=== PATIENT | male | born 1935 | race Caucasian/White ===

== ENCOUNTER 2017-07-29 23:28 | Inpatient (IN) | payer MEDICARE ==
[~2017-07-29] VITALS: Ht 177.8 cm; Wt 94.1 kg
[~2017-07-29 23:28] MED LIST: ASPI-555 PO; CARV6.25 PO; CHOL100018 PO; CLOP75TA32 PO; FLUT1AER IH; FURO40TA5 PO; GABA-529 PO; IPRA3AMP24 IH; OLME40TA8 PO; SIMV80TA7 PO
[2017-07-29 23:47] LABS: BASOPHILS % (AUTO) 1.7 % (0.0-5.0); EOSINOPHILS % (AUTO) 3.9 % (0.0-8.0); HEMATOCRIT 27.5 % (42-54); LYMPHOCYTES % (AUTO) 16.9 % (21.0-51.0); MEAN CORPUSCULAR HEMOGLOBIN 27.3 pg (27.0-33.0); MEAN CORPUSCULAR HGB CONC 31.8 g/dL (32.0-36.0); MEAN CORPUSCULAR VOLUME 85.7 fL (79-99); MONOCYTES % (AUTO) 6.6 % (3.0-13.0); NEUTROPHILS % (AUTO) 70.9 % (40.0-77.0); PLATELET COUNT (AUTO) 305 K/uL (130-400); RED BLOOD CELL COUNT(AUTO) 3.21 MIL/uL (4.50-6.20); WHITE BLOOD COUNT (AUTO) 10.2 K/uL (4.8-10.8)
[2017-07-30 00:02] LABS: CREATININE 1.7 mg/dL (0.5-1.5); POTASSIUM 4.3 mmol/L (3.5-5.1)
[2017-07-30 00:04] LABS: INR 0.88 (0.85-1.15); PARTIAL THROMBOPLASTIN TIME 22.4 SEC (26.3-35.5); PROTHROMBIN TIME 9.3 SEC (9.6-11.6)
[2017-07-30 00:05] LABS: ALBUMIN 3.1 g/dL (3.5-5.0); BILIRUBIN,TOTAL 0.1 mg/dL (0.2-1.0); TOTAL PROTEIN, SERUM 6.9 g/dL (6.0-8.3)
[2017-07-30] MEDS ORDERED: GLUCAGON 1MG KIT 1 MG ML IM PRN (05:45)
[2017-07-30] MEDS ORDERED: LACTULOSE 20 GM/30 ML UDCUP PO PRN (05:45)
[2017-07-30] MEDS ORDERED: POTASSIUM CHLORIDE 10% ELIXIR 20 MEQ/15 ML UDCUP PO PRN (05:45)
[2017-07-30] MEDS ORDERED: ACETAMINOPHEN 325 MG TAB PO PRN ×2 (05:45)
[2017-07-30] MEDS ORDERED: POTASSIUM CHLORIDE 20 MEQ ERTAB PO PRN (05:45)
[2017-07-30] MEDS ORDERED: DEXTROSE 50%-WATER 50 ML DISP.SYRIN IV PRN (05:45)
[2017-07-30] MEDS ORDERED: LIDOCAINE HCL-MPF 1% 2ML VIAL IJ PRN (05:45)
[2017-07-30] MEDS ORDERED: CLONIDINE HCL 0.1 MG TABLET PO PRN (05:45)
[2017-07-30] MEDS ORDERED: SODIUM CHLORIDE 0.9% 1000ML 1,000 ML IV SCH (05:45)
[2017-07-30] MEDS ORDERED: POTASSIUM CHLORIDE 20MEQ/100ML 100 ML IV PRN (05:45)
[2017-07-30] MEDS ORDERED: IPRATROPIUM/ALBUTEROL SULFATE 3 ML SOLUTION IH PRN (05:45)
[2017-07-30] MEDS: INSULIN R PO SS1 SQ SCH ×4 (07:30→21:00)
[2017-07-30] MEDS: FAMOTIDINE 20MG TAB 20 MG TAB PO SCH (09:00)
[2017-07-30] MEDS ORDERED: FAMOTIDINE/PF 20 MG/2 ML VIAL IV ONE (09:34)
[2017-07-30 10:01] LABS: BASOPHILS % (AUTO) 0.2 % (0.0-5.0); HEMATOCRIT 22.6 % (42-54); LYMPHOCYTES % (AUTO) 9.8 % (21.0-51.0); MEAN CORPUSCULAR HEMOGLOBIN 28.4 pg (27.0-33.0); MEAN CORPUSCULAR HGB CONC 33.2 g/dL (32.0-36.0); MEAN CORPUSCULAR VOLUME 85.8 fL (79-99); MONOCYTES % (AUTO) 6.6 % (3.0-13.0); NEUTROPHILS % (AUTO) 81.4 % (40.0-77.0); PLATELET COUNT (AUTO) 237 K/uL (130-400); RED BLOOD CELL COUNT(AUTO) 2.63 MIL/uL (4.50-6.20); RED CELL DISTRIBUTION WIDTH 21.5 % (11.0-15.5); WHITE BLOOD COUNT (AUTO) 7.1 K/uL (4.8-10.8)
[2017-07-30 10:05] LABS: CREATININE 1.4 mg/dL (0.5-1.5); POTASSIUM 4.2 mmol/L (3.5-5.1)
[2017-07-30] MEDS: BENZONATATE 100 MG CAPSULE PO SCH ×2 (12:45→20:55)
[2017-07-30] MEDS ORDERED: DOXYCYCLINE 100MG+NS 250ML 250 ML IV SCH ×2 (12:45→17:30)
[2017-07-30 14:45] VITALS: BP 153/99
[2017-07-30] MEDS: METHYLPREDNISOLONE SOD SUCC 40MG/ML 1ML IVP SCH ×2 (16:59→20:54)
[2017-07-30] MEDS: IPRATROPIUM/ALBUTEROL SULFATE 3 ML SOLUTION IH SCH ×2 (18:54→23:22)
[2017-07-30 19:12] VITALS: BP 146/84
[2017-07-30] MEDS ORDERED: FURO20TA4 PO (20:20)
[2017-07-30] MEDS ORDERED: OLME20TA22 PO (20:20)
[2017-07-30] MEDS ORDERED: OMEP40CA37 PO (20:20)
[2017-07-30] MEDS ORDERED: CLOP75TA14 PO (20:20)
[2017-07-30] MEDS ORDERED: UMEC62.5 IH (20:20)
[2017-07-30] MEDS ORDERED: FERR-82 PO (20:20)
[2017-07-30] MEDS ORDERED: ASPI-555 PO (20:20)
[2017-07-30] MEDS: ZOSYN 3.375GM+NS 50ML 50 ML IV SCH (20:55)
[2017-07-30] MEDS: ATORVASTATIN CALCIUM 40 MG TABLET PO SCH (20:55)
[2017-07-30] MEDS: LOSARTAN 100 MG TABLET PO SCH (20:56)
[2017-07-30] MEDS: CARVEDILOL 6.25 MG TABLET PO SCH (20:57)
[2017-07-30] MEDS: GABAPENTIN 100 MG CAPSULE PO SCH (20:57)
[2017-07-30] MEDS: BUDESONIDE 0.5 MG/2 ML INH IH SCH (21:24)
[2017-07-30 23:16] VITALS: BP 121/65
[2017-07-31] VITALS (14 sets, daily range): BP systolic 130–163; BP diastolic 68–116
[2017-07-31] MEDS: METHYLPREDNISOLONE SOD SUCC 40MG/ML 1ML IVP SCH ×3 (04:51→22:38)
[2017-07-31] MEDS: BENZONATATE 100 MG CAPSULE PO SCH ×3 (04:51→22:52)
[2017-07-31] MEDS: INSULIN R PO SS1 SQ SCH ×4 (05:47→21:00)
[2017-07-31] MEDS: IPRATROPIUM/ALBUTEROL SULFATE 3 ML SOLUTION IH SCH ×3 (05:56→18:39)
[2017-07-31] MEDS: VITAMIN D3 1000 UNIT PO SCH (09:00)
[2017-07-31] MEDS: ZOSYN 3.375GM+NS 50ML 50 ML IV SCH ×2 (09:00→11:56)
[2017-07-31] MEDS: FAMOTIDINE 20MG TAB 20 MG TAB PO SCH (09:32)
[2017-07-31] MEDS: CARVEDILOL 6.25 MG TABLET PO SCH ×2 (09:33→22:53)
[2017-07-31] MEDS: FUROSEMIDE 40 MG TABLET PO SCH (09:33)
[2017-07-31] MEDS: DOXYCYCLINE 100MG+NS 250ML 250 ML IV SCH ×2 (09:33→22:38)
[2017-07-31] MEDS: BUDESONIDE 0.5 MG/2 ML INH IH SCH ×2 (11:02→19:03)
[2017-07-31] MEDS ORDERED: PROPOFOL 10 MG/ML 20ML VIAL IV ONE (13:10)
[2017-07-31] MEDS ORDERED: EPHEDRINE SULFATE 50 MG/ML AMPULE ONE (13:11)
[2017-07-31] MEDS ORDERED: EPINEPHRINE 1 MG/ML AMPULE ONE (13:31)
[2017-07-31 19:17] LABS: APPEARANCE BODY FLUID TURBID (CLEAR); SPECIMENTYPE,BODY FLUID LAVAGE
[2017-07-31 19:18] LABS: BODY FLUID RBC 105950 /cu. mm.; BODY FLUID WBC 304 /cu. mm.; COLOR,BODY FLUID RED (LT YELLOW); TOTAL VOLUME,BODY FLUID 22 mL
[2017-07-31 20:31] LABS: BF LYMPHOCYTE 23 %; BF MONOCYTE 1 %
[2017-07-31] MEDS: LOSARTAN 100 MG TABLET PO SCH (22:53)
[2017-07-31] MEDS: ATORVASTATIN CALCIUM 40 MG TABLET PO SCH (22:53)
[2017-07-31] MEDS: GABAPENTIN 100 MG CAPSULE PO SCH (22:54)
[2017-08-01] VITALS (7 sets, daily range): BP systolic 92–152; BP diastolic 37–91
[2017-08-01] MEDS: IPRATROPIUM/ALBUTEROL SULFATE 3 ML SOLUTION IH SCH ×5 (00:06→23:49)
[2017-08-01] MEDS ORDERED: SODIUM CHLORIDE 0.9% 250 ML IV ONE (01:37)
[2017-08-01] MEDS: ZOSYN 3.375GM+NS 50ML 50 ML IV SCH ×4 (01:50→23:02)
[2017-08-01 04:08] LABS: HEMATOCRIT 24.2 % (42-54); MEAN CORPUSCULAR HEMOGLOBIN 28.4 pg (27.0-33.0); MEAN CORPUSCULAR HGB CONC 33.2 g/dL (32.0-36.0); MEAN CORPUSCULAR VOLUME 85.5 fL (79-99); PLATELET COUNT (AUTO) 273 K/uL (130-400); RED BLOOD CELL COUNT(AUTO) 2.83 MIL/uL (4.50-6.20); RED CELL DISTRIBUTION WIDTH 22.1 % (11.0-15.5); WHITE BLOOD COUNT (AUTO) 9.5 K/uL (4.8-10.8)
[2017-08-01 04:10] LABS: CREATININE 1.7 mg/dL (0.5-1.5)
[2017-08-01] MEDS: METHYLPREDNISOLONE SOD SUCC 40MG/ML 1ML IVP SCH (05:09)
[2017-08-01] MEDS: BENZONATATE 100 MG CAPSULE PO SCH ×3 (05:09→20:28)
[2017-08-01] MEDS: INSULIN R PO SS1 SQ SCH ×4 (06:14→20:36)
[2017-08-01] MEDS: BUDESONIDE 0.5 MG/2 ML INH IH SCH ×2 (06:16→18:30)
[2017-08-01] MEDS: VITAMIN D3 1000 UNIT PO SCH (08:34)
[2017-08-01] MEDS: FERROUS SULFATE 325 MG TABLET.DR PO SCH (08:57)
[2017-08-01] MEDS: LOSARTAN 100 MG TABLET PO SCH (08:57)
[2017-08-01] MEDS: FAMOTIDINE 20MG TAB 20 MG TAB PO SCH (08:57)
[2017-08-01] MEDS: DOXYCYCLINE 100MG+NS 250ML 250 ML IV SCH ×2 (08:57→20:23)
[2017-08-01] MEDS: FUROSEMIDE 40 MG TABLET PO SCH (08:58)
[2017-08-01] MEDS: CARVEDILOL 6.25 MG TABLET PO SCH ×2 (08:58→20:28)
[2017-08-01 09:50] LABS: % IRON SATURATION 4.9 % (30-44)
[2017-08-01] MEDS ORDERED: GADOBENATE DIMEGLUMINE 10 ML IV ONE (10:40)
[2017-08-01] MEDS: GABAPENTIN 100 MG CAPSULE PO SCH (20:27)
[2017-08-01] MEDS: ATORVASTATIN CALCIUM 40 MG TABLET PO SCH (20:28)
[2017-08-02 03:50] VITALS: BP 112/53
[2017-08-02] MEDS: BENZONATATE 100 MG CAPSULE PO SCH ×3 (05:21→20:34)
[2017-08-02] MEDS: IPRATROPIUM/ALBUTEROL SULFATE 3 ML SOLUTION IH SCH ×4 (06:15→23:01)
[2017-08-02] MEDS: INSULIN R PO SS1 SQ SCH ×4 (06:16→20:33)
[2017-08-02] MEDS: BUDESONIDE 0.5 MG/2 ML INH IH SCH ×2 (06:25→17:59)
[2017-08-02 07:35] VITALS: BP 120/55
[2017-08-02] MEDS: VITAMIN D3 1000 UNIT PO SCH (09:00)
[2017-08-02] MEDS: LOSARTAN 100 MG TABLET PO SCH (09:45)
[2017-08-02] MEDS: FUROSEMIDE 40 MG TABLET PO SCH (09:45)
[2017-08-02] MEDS: FERROUS SULFATE 325 MG TABLET.DR PO SCH (09:45)
[2017-08-02] MEDS: FAMOTIDINE 20MG TAB 20 MG TAB PO SCH (09:46)
[2017-08-02] MEDS: CARVEDILOL 6.25 MG TABLET PO SCH ×2 (09:46→20:34)
[2017-08-02] MEDS: ZOSYN 3.375GM+NS 50ML 50 ML IV SCH ×2 (09:46→20:35)
[2017-08-02] MEDS: DOXYCYCLINE 100MG+NS 250ML 250 ML IV SCH ×2 (09:46→20:35)
[2017-08-02] MEDS: PREDNISONE 20 MG TABLET PO SCH (09:46)
[2017-08-02 11:20] VITALS: BP 131/74
[2017-08-02 16:15] VITALS: BP 102/57
[2017-08-02 19:52] VITALS: BP 128/63
[2017-08-02] MEDS: GABAPENTIN 100 MG CAPSULE PO SCH (20:35)
[2017-08-02] MEDS: ATORVASTATIN CALCIUM 40 MG TABLET PO SCH (20:35)
[2017-08-02 23:43] VITALS: BP 113/56
[2017-08-03 03:57] LABS: HEMATOCRIT 25.6 % (42-54); MEAN CORPUSCULAR HEMOGLOBIN 28.1 pg (27.0-33.0); NUCLEATED RED BLOOD CELLS 0.1 % (0.0-0.19); PLATELET COUNT (AUTO) 278 K/uL (130-400); RED BLOOD CELL COUNT(AUTO) 3.01 MIL/uL (4.50-6.20); RED CELL DISTRIBUTION WIDTH 22.1 % (11.0-15.5); WHITE BLOOD COUNT (AUTO) 10.3 K/uL (4.8-10.8)
[2017-08-03 03:59] VITALS: BP 143/95
[2017-08-03 03:59] LABS: CREATININE 1.6 mg/dL (0.5-1.5); POTASSIUM 4.4 mmol/L (3.5-5.1)
[2017-08-03] MEDS: INSULIN R PO SS1 SQ SCH ×4 (05:32→20:33)
[2017-08-03] MEDS: BENZONATATE 100 MG CAPSULE PO SCH ×3 (05:35→20:34)
[2017-08-03] MEDS: IPRATROPIUM/ALBUTEROL SULFATE 3 ML SOLUTION IH SCH ×4 (06:29→23:32)
[2017-08-03] MEDS: BUDESONIDE 0.5 MG/2 ML INH IH SCH ×2 (06:41→18:31)
[2017-08-03 07:45] VITALS: BP 125/65
[2017-08-03] MEDS: VITAMIN D3 1000 UNIT PO SCH (09:00)
[2017-08-03] MEDS: PREDNISONE 20 MG TABLET PO SCH (09:15)
[2017-08-03] MEDS: FAMOTIDINE 20MG TAB 20 MG TAB PO SCH (09:15)
[2017-08-03] MEDS: FERROUS SULFATE 325 MG TABLET.DR PO SCH (09:15)
[2017-08-03] MEDS: CARVEDILOL 6.25 MG TABLET PO SCH ×2 (09:18→20:34)
[2017-08-03] MEDS: LOSARTAN 100 MG TABLET PO SCH (09:18)
[2017-08-03] MEDS: DOXYCYCLINE 100MG+NS 250ML 250 ML IV SCH ×2 (09:18→20:35)
[2017-08-03] MEDS: ZOSYN 3.375GM+NS 50ML 50 ML IV SCH ×2 (09:20→20:34)
[2017-08-03] MEDS: FUROSEMIDE 40 MG TABLET PO SCH (09:20)
[2017-08-03 11:40] VITALS: BP 122/66
[2017-08-03 16:05] VITALS: BP 119/63
[2017-08-03 19:34] VITALS: BP 139/66
[2017-08-03] MEDS: ATORVASTATIN CALCIUM 40 MG TABLET PO SCH (20:33)
[2017-08-03] MEDS: GABAPENTIN 100 MG CAPSULE PO SCH (20:34)
[2017-08-03 23:23] VITALS: BP 123/67
[2017-08-04 04:01] VITALS: BP 147/82
[2017-08-04 04:11] LABS: CREATININE 1.6 mg/dL (0.5-1.5); POTASSIUM 4.4 mmol/L (3.5-5.1)
[2017-08-04] MEDS: BENZONATATE 100 MG CAPSULE PO SCH (05:52)
[2017-08-04] MEDS: INSULIN R PO SS1 SQ SCH ×2 (05:55→11:30)
[2017-08-04] MEDS: IPRATROPIUM/ALBUTEROL SULFATE 3 ML SOLUTION IH SCH ×2 (06:18→11:19)
[2017-08-04] MEDS: BUDESONIDE 0.5 MG/2 ML INH IH SCH (06:41)
[2017-08-04 08:22] VITALS: BP 115/60
[2017-08-04] MEDS: VITAMIN D3 1000 UNIT PO SCH (09:00)
[2017-08-04] MEDS: CARVEDILOL 6.25 MG TABLET PO SCH (09:28)
[2017-08-04] MEDS: DOXYCYCLINE 100MG+NS 250ML 250 ML IV SCH (09:28)
[2017-08-04] MEDS: ZOSYN 3.375GM+NS 50ML 50 ML IV SCH (09:28)
[2017-08-04] MEDS: FAMOTIDINE 20MG TAB 20 MG TAB PO SCH (09:28)
[2017-08-04] MEDS: FERROUS SULFATE 325 MG TABLET.DR PO SCH (09:28)
[2017-08-04] MEDS: LOSARTAN 100 MG TABLET PO SCH (09:29)
[2017-08-04] MEDS: PREDNISONE 20 MG TABLET PO SCH (09:29)
[2017-08-04] MEDS: FUROSEMIDE 40 MG TABLET PO SCH (09:29)
[2017-08-04] MEDS ORDERED: PRED20B PO (10:14)
[2017-08-04] MEDS ORDERED: CARV6.2579 PO (10:14)
[2017-08-04 12:16] VITALS: BP 119/77
[2017-08-04] MEDS ORDERED: COMPOUND IV MISC 1 EACH IVSOLN MISC PRN (12:30)
[2017-08-04] MEDS ORDERED: IRON SUCROSE COMPLEX 100 MG in SODIUM CHLORIDE 0.9% 50 ML IV SCH (15:00)
[2017-08-05] MEDS ORDERED: CYANOCOBALAMIN (VITAMIN B-12) 1,000 MCG TABLET PO SCH (09:00)
== END 2017-08-04 16:45 | disposition hospice, home (50) | DRG 166 ==
LOC: EDH 23:28 → OBSVTOIN 07-30 04:41 → EDHIP 07-30 04:41 → 3DH 07-30 12:49 → EDHIP 07-30 13:16 → 2DH 07-30 14:39
PROVIDERS: ADMIT Family Medicine; ATTEND Family Medicine
PROC: 0BJ08ZZ Inspection of Tracheobronchial Tree, Via Natural or Artificial Opening Endoscopic (ICD-10-PCS; principal; 2017-07-31)
PROC: 0B9J8ZX Drainage of Left Lower Lung Lobe, Via Natural or Artificial Opening Endoscopic, Diagnostic (ICD-10-PCS; 2017-07-31)
PROC: 0BDB8ZX Extraction of Left Lower Lobe Bronchus, Via Natural or Artificial Opening Endoscopic, Diagnostic (ICD-10-PCS; 2017-07-31)
DX: C78.00 Secondary malignant neoplasm of unspecified lung (principal); J96.21 Acute and chronic respiratory failure with hypoxia; I13.0 Hypertensive heart and chronic kidney disease with heart failure and stage 1 through stage 4 chronic kidney disease, or unspecified chronic kidney disease; C79.31 Secondary malignant neoplasm of brain; I48.91 Unspecified atrial fibrillation; I50.9 Heart failure, unspecified; J44.1 Chronic obstructive pulmonary disease with (acute) exacerbation; R04.2 Hemoptysis; I25.10 Atherosclerotic heart disease of native coronary artery without angina pectoris; R59.1 Generalized enlarged lymph nodes; Z51.5 Encounter for palliative care; N18.9 Chronic kidney disease, unspecified; D50.9 Iron deficiency anemia, unspecified; E78.5 Hyperlipidemia, unspecified; I25.2 Old myocardial infarction; Z79.02 Long term (current) use of antithrombotics/antiplatelets; Z79.82 Long term (current) use of aspirin; Z85.118 Personal history of other malignant neoplasm of bronchus and lung; Z85.46 Personal history of malignant neoplasm of prostate; Z86.79 Personal history of other diseases of the circulatory system; Z87.891 Personal history of nicotine dependence; Z92.3 Personal history of irradiation; Z95.5 Presence of coronary angioplasty implant and graft; Z99.81 Dependence on supplemental oxygen; Z88.8 Allergy status to other drugs, medicaments and biological substances
CPT/HCPCS: 36415; 70553; 71045; 71250; 76000; 80048; 80053; 82550; 82607; 82746; 82948; 83540; 83550; 83605; 83615; 83690; 83880; 84484; 85025; 85027; 85610; 85730; 86850; 86900; 86901; 87071; 87106; 87116; 87205; 87206; 88104; 88305; 88312; 89051; 93005; 93306; 94640; 94664; A9577; J0171; J1756; J1815; J2543; J2704; J2920; J3490; J7030